=== PATIENT | male | born 1995 | race Caucasian/White ===

== ENCOUNTER 2018-11-11 14:13 | Inpatient (IN) | payer BC, OTHER ==
[~2018-11-11] VITALS: Ht 152.4 cm; Wt 70.8 kg
[~2018-11-11 14:13] MED LIST: DEPAKOTE500 MG PO; VIIBRYD10 MG PO; ZARONTIN250 MG PO; ZOFRAN ODT4 MG PO
[2018-11-11 14:15] VITALS: BP 113/63
[2018-11-11 14:47] LABS: ABSOLUTE NEUTROPHILS 8.2 thou/uL (1.4-8.2); BASOPHILS 0.2 % (0.0-2.0); EOSINOPHILS 0.1 % (0.0-3.0); HEMATOCRIT 46.4 % (42.0-52.0); HEMOGLOBIN 16.3 gm/dL (14.0-18.0); LYMPHOCYTES 4.8 % (24.0-44.0); MCH 30.8 pg (26.0-34.0); MCHC 35.2 g/dL (28.0-37.0); MCV 87.5 fL (80.0-100.0); MONOCYTES 4.2 % (1.0-8.0); PLATELET COUNT 207 thou/uL (150-400); POLYS 90.7 % (36.0-66.0); RDW 14.5 % (10.5-14.5); WBC 9.1 thou/uL (4.0-11.0)
[2018-11-11 14:52] LABS: URINE BLOOD NEGATIVE (Negative); URINE CLARITY CLEAR; URINE COLOR YELLOW; URINE GLUCOSE-RANDOM* NEGATIVE (Negative); URINE KETONES 1+ (Negative); URINE LEUKOCYTES-REFLEX NEGATIVE (Negative); URINE NITRITE-REFLEX NEGATIVE (Negative); URINE PROTEIN (DIPSTICK) TRACE (Negative); URINE SPECIFIC GRAVITY 1.025 (1.005-1.035)
[2018-11-11 14:54] LABS: ICTOTEST (BILI CONFIRMATORY) Negative (Negative); URINE BILIRUBIN NEGATIVE (Negative)
[2018-11-11 14:56] LABS: CALCIUM 9.2 mg/dL (8.5-10.1); POTASSIUM 3.9 mmol/L (3.5-5.1)
[2018-11-11 15:00] LABS: ALBUMIN 4.2 g/dL (3.4-5.0); TOTAL BILIRUBIN 2.1 mg/dL (<0.1-1.0); TOTAL PROTEIN 7.6 g/dL (6.4-8.2)
[2018-11-11 20:38] VITALS: BP 99/44
[2018-11-11 21:07] LABS: AMP/METHAMP Negative (Negative); BARBITURATES Negative (Negative); BENZODIAZEPINES Negative (Negative); COCAINE Negative (Negative); METHADONE Negative (Negative); OPIATES Negative (Negative); PCP Negative (Negative)
[2018-11-11] MEDS ORDERED: PROZAC10 MG PO (22:06)
[2018-11-11 22:35] VITALS: BP 120/50
[2018-11-12 04:30] VITALS: BP 116/64
[2018-11-12 04:55] LABS: ALBUMIN 3.1 g/dL (3.4-5.0); CALCIUM 7.7 mg/dL (8.5-10.1); CREATININE 0.9 mg/dL (0.7-1.3); POTASSIUM 3.9 mmol/L (3.5-5.1); TOTAL BILIRUBIN 1.7 mg/dL (<0.1-1.0); TOTAL PROTEIN 5.7 g/dL (6.4-8.2)
[2018-11-12 08:00] VITALS: BP 110/52
--- NOTE | 2018-11-12 08:11 | NUR ---
ADMIT PT ADMITTED TO ROOM 457 FROM ED, BEING ADMITTED WITH N/V/D FLU A&B SWABS NEGATIVE, TESTED POSITIVE FOR MONO, NORMAL SALINE ORDERED, INFUSING AT 125CC/HR PT SLEPT MOST OF SHIFT. MOTHER AT BEDSIDE, ADMISSION HISTORY ASSESSMENT AND MED REC COMPLETED, ADMISSION PACKET GIVEN, PT DENIES PAIN CONTINUE TO MONITOR.
--- NOTE | 2018-11-12 12:20 | NUR ---
TOWARDS POC PT A/O X4, VSS, AFEBRILE, DENIES PAIN, NAUSEA X1 THIS AM PRN MEDS GIVEN. PARENTS AT BEDSIDE. PT ON REGULAR DIET TOLERATING WELL. NO CONCERNS VOICED, WILL CONTINUE TO MONITOR.
[2018-11-12 15:00] VITALS: BP 112/61
[2018-11-12 19:33] VITALS: BP 133/62
--- NOTE | 2018-11-13 04:46 | NUR ---
PATIENT AOX4 MAKES NEEDS KNOWN.PATIENT CALM AND COOPERATIVE WITH MEDS AND CARE. PATIENT DENIED PAIN/ NAUSEA OR VOMIT THIS SHIFT. MOTHER AT BEDSIDE. PATIENT IN BED ASLEEP AT THIS TIME BREATHING REGULAR AND UNLABOURED.
[2018-11-13 04:48] VITALS: BP 114/72
[2018-11-13 06:06] LABS: CREATININE 0.8 mg/dL (0.7-1.3); POTASSIUM 3.6 mmol/L (3.5-5.1)
[2018-11-13 07:23] VITALS: BP 118/85
[2018-11-13 10:28] VITALS: BP 118/85
--- NOTE | 2018-11-13 11:03 | NUR ---
PT STABLE THIS MORNING. PT DISCHARGED HOME, LEFT UNIT VIA WHEELCHAIR TO PRIVATE VEHICLE.
[2018-11-13 15:10] LABS: HAV IgM AB (ANTI-HAV IgM) Negative (Negative); HEPATITIS B SURFACE AG Negative (Negative); HEPATITIS C VIRUS AB <0.1 (0.0-0.9)
== END 2018-11-13 11:56 | disposition home or self-care (01) | DRG 392 ==
LOC: ER 14:13 → EROBS 19:16 → 4W 19:16 → ENTRNSPT 11-13 11:01 → EDTRNSPTSTS 11-13 11:04 → 4W 11-13 11:56
PROVIDERS: Nurse Practitioner Family; Physician Assistant; ADMIT Hospitalist
DX: K52.9 Noninfective gastroenteritis and colitis, unspecified (principal); G40.909 Epilepsy, unspecified, not intractable, without status epilepticus; F32.9 Major depressive disorder, single episode, unspecified; I95.9 Hypotension, unspecified; Z90.49 Acquired absence of other specified parts of digestive tract; Z79.899 Other long term (current) drug therapy
CPT/HCPCS: 10045; 10047

== ENCOUNTER 2019-08-29 11:49 | Emergency (ER) | payer BC, OTHER ==
[~2019-08-29] VITALS: Ht 177.8 cm; Wt 68.0 kg
[~2019-08-29 11:49] MED LIST changes: +PROZAC10 MG PO
[2019-08-29 12:29] LABS: ABSOLUTE NEUTROPHILS 4.5 thou/uL (1.4-8.2); BASOPHILS 0.6 % (0.0-2.0); EOSINOPHILS 0.7 % (0.0-3.0); HEMATOCRIT 45.1 % (42.0-52.0); HEMOGLOBIN 15.1 gm/dL (14.0-18.0); LYMPHOCYTES 26.4 % (24.0-44.0); MCH 30.7 pg (26.0-34.0); MCHC 33.5 g/dL (28.0-37.0); MCV 91.7 fL (80.0-100.0); MONOCYTES 6.9 % (1.0-8.0); PLATELET COUNT 316 thou/uL (150-400); POLYS 65.4 % (36.0-66.0); RBC 4.92 mil/uL (4.50-6.00); RDW 14.2 % (10.5-14.5); WBC 6.8 thou/uL (4.0-11.0)
[2019-08-29 12:45] LABS: CALCIUM 9.2 mg/dL (8.5-10.1); POTASSIUM 3.8 mmol/L (3.5-5.1)
[2019-08-29 13:55] LABS: URINE BILIRUBIN NEGATIVE (Negative); URINE BLOOD NEGATIVE (Negative); URINE CLARITY CLEAR; URINE COLOR YELLOW; URINE GLUCOSE-RANDOM* NEGATIVE (Negative); URINE KETONES NEGATIVE (Negative); URINE LEUKOCYTES-REFLEX NEGATIVE (Negative); URINE NITRITE-REFLEX NEGATIVE (Negative); URINE PROTEIN (DIPSTICK) NEGATIVE (Negative); URINE UROBILINOGEN 0.2 E.U./dl (0.2-1.0)
[2019-08-29 14:02] LABS: AMP/METHAMP Negative (Negative); BARBITURATES Negative (Negative); BENZODIAZEPINES Negative (Negative); COCAINE Negative (Negative); METHADONE Negative (Negative); OPIATES Negative (Negative); PCP Negative (Negative)
[2019-08-29] MEDS ORDERED: ZOFRAN ODT4 MG PO (14:11)
[2019-08-29 15:36] VITALS: BP 106/64
== END 2019-08-29 15:36 | disposition home or self-care (01) ==
LOC: ER 11:49
PROVIDERS: Emergency Medicine
DX: G40.909 Epilepsy, unspecified, not intractable, without status epilepticus (principal); R11.0 Nausea; F32.9 Major depressive disorder, single episode, unspecified; Z91.14 Patient's other noncompliance with medication regimen